=== PATIENT | male | born 1995 | race Caucasian/White ===

== ENCOUNTER 2024-10-27 07:37 | Emergency (ER) | payer OTHER ==
[~2024-10-27] VITALS: Ht 172.7 cm; Wt 70.3 kg
== END 2024-10-27 09:29 | disposition home or self-care (01) ==
LOC: ER 07:37
DX: S61.011A Laceration without foreign body of right thumb without damage to nail, initial encounter (principal); W26.9XXA Contact with unspecified sharp object(s), initial encounter
CPT/HCPCS: 12001; 90471; 90715; 99282-25